=== PATIENT | female | born 1970 | race African-American/Black ===

== ENCOUNTER 2016-11-20 19:31 | Emergency (ER) | payer SELFPAY ==
[~2016-11-20] VITALS: Ht 167.6 cm; Wt 99.8 kg
[~2016-11-20 19:31] MED LIST: ALBU2.5V14 IH; AZIT500T PO; HYDR-971 PO; PRED50TA PO
[2016-11-20 19:36] VITALS: BP 130/83
[2016-11-20] MEDS ORDERED: ACETAMINOPHEN 500 MG TABLET PO ONE (20:00)
[2016-11-20] MEDS ORDERED: IBUPROFEN 800 MG TABLET. PO ONE (20:00)
[2016-11-20] MEDS ORDERED: PROAIR RESPICL90 MCG IH (20:05)
--- NOTE | 2016-11-20 20:06 | PHYS DOC ---
Past Medical History Past Medical History: Asthma, Hypertension Past Surgical History: Tubal ligation, Other Additional Past Surgical Histo: R)kidney removed(enlarged since ),bilat eyes,D&C x2 Alcohol Use: Occasionally Drug Use: None Adult General Chief Complaint Chief Complaint: MULTIPLE COMPLAINTS [facility] HPI Patient is a 46 year old female with history of asthma and hypertension who presents today with body aches, subjective fevers, and a headache that began 3 days ago. Patient's also complaining of coughing. Patient denies this being the worst headache in her life. Denies any chest pain or shortness of breath. She is also requesting a refill of albuterol inhaler. Review of Systems Review of Systems Constitutional: Subjective fevers and body aches Eyes: Denies change in visual acuity, redness, or eye pain [] HENT: Denies nasal congestion or sore throat [] Respiratory: Cough Cardiovascular: No additional information not addressed in HPI [] GI: Denies abdominal pain, nausea, vomiting, bloody stools or diarrhea [] : Denies dysuria or hematuria [] Musculoskeletal: Denies back pain or joint pain [] Integument: Denies rash or skin lesions [] Neurologic: Headache [] Endocrine: Denies polyuria or polydipsia [] Current Medications Current Medications Current Medications Medications (Trade) Dose Ordered Sig/Adrianne Start Time Stop Time Status Last Admin Dose Admin Acetaminophen (Tylenol) 1,000 mg 1X ONCE 11/20/16 20:00 11/20/16 20:01 DC 11/20/16 19:57 1,000 MG Ibuprofen (Motrin) 800 mg 1X ONCE 11/20/16 20:00 11/20/16 20:01 DC Allergies Allergies Allergies Coded Allergies Type Severity Reaction Last Updated Verified No Known Drug Allergies 01/24/14 No Physical Exam Physical Exam Constitutional: Well developed, well nourished, no acute distress, non-toxic appearance. [] HENT: Normocephalic, atraumatic, bilateral external ears normal, oropharynx moist, no oral exudates, nose normal. [] Eyes: PERRLA, EOMI, conjunctiva normal, no discharge. [] Neck: Normal range of motion, no tenderness, supple, no stridor. [] Cardiovascular:Heart rate regular rhythm, no murmur [] Lungs & Thorax: Left lower lung sounds course. Patient is actively coughing in the ED. Abdomen: Bowel sounds normal, soft, no tenderness, no masses, no pulsatile masses. [] Skin: Warm, dry, no erythema, no rash. [] Back: No tenderness, no CVA tenderness. [] Extremities: No tenderness, no cyanosis, no clubbing, ROM intact, no edema. [] Neurologic: Alert and oriented X 3, normal motor function, normal sensory function, no focal deficits noted. [] Psychologic: Affect normal, judgement normal, mood normal. [] Current Patient Data Vital Signs Vital Signs Date Time Temp Pulse Resp B/P Pulse Ox O2 Delivery O2 Flow Rate FiO2 11/20/16 19:36 99.8 97 18 97 Room Air 99.8 Lab Values Laboratory Tests Test 11/20/16 19:45 Influenza Type A Antigen Negative (NEGATIVE) Influenza Type B Antigen Positive (NEGATIVE) EKG EKG [] Radiology/Procedures Radiology/Procedures [] Course & Med Decision Making Course & Med Decision Making Pertinent Labs and Imaging studies reviewed. (See chart for details) Patient is in the ED with symptoms consistent with body aches headache fever and cough. Temperature in arrival is 99.8. She was given Tylenol and Motrin. She also requested a refill for albuterol inhaler which was given to her. Positive for influenza B. Chest x-ray interpreted by Dr. Mccoy is positive for left lower lobe pneumonia. Patient was discharged with clarithromycin for 7 days. She was instructed to push fluids maintain good hand hygiene. Tylenol/ Motrin for pain or fever. Follow-up with her doctor next week. Instructed to return to the ED at any point symptoms worsen. 21:25 received a phone call from the local pharmacist stating patient cannot afford clarithromycin neither can she afford Z-Robert. We switched her antibiotic to Cipro. Dragon Disclaimer Dragon Disclaimer This electronic medical record was generated, in whole or in part, using a voice recognition dictation system. Departure Departure Impression: Primary Impression: Medication refill Additional Impressions: Influenza B Community acquired pneumonia Fever Disposition: 01 HOME, SELF-CARE Condition: STABLE Referrals: CHANCE CASTELLANOS PA-C (PCP) Follow-up with your doctor in the next 7 days Patient Instructions: Medication Refill, Emergency Department Additional Instructions: You tested positive for influenza B. This is a virus. Your chest x-ray shows evidence of pneumonia. Please complete to the prescribed antibiotics. Please come back to the ED at any point symptoms worsen or you not able to take the prescribed medicines. Please follow-up with your own doctor next week. Take over -the-counter antipyretics like Tylenol for fever. Scripts Guaifenesin/Codeine Phosphate (Guaifenesin-Codeine Syrup)118 Ml Liquid5 Ml PO Q6HRS #100 ML Prov:KELSEY LANCASTER APRN 11/20/16 Clarithromycin 500 Mg Tablet1 Tab PO BID #14 TAB Prov:KELSEY LANCASTER APRN 11/20/16 Albuterol Sulfate (Proair Respiclick)90 Mcg Aer.pow.ba1 Puff IH PRN Q6HRS PRN SHORTNESS OF BREATH #1 INHALER Prov:KELSEY LANCASTER APRN 11/20/16 Problem Qualifiers Additional Impressions: Fever Fever type: unspecified Qualified Code: R50.9 - Fever, unspecified KELSEY LANCASTER APRN Nov 20, 2016 20:06
[2016-11-20 20:17] LABS: OBC FLU VALID
[2016-11-20] MEDS ORDERED: CLAR500T PO (20:44)
[2016-11-20] MEDS ORDERED: GUAI118L13 PO (20:44)
--- NOTE | 2016-11-21 07:57 | RAD ---
Chest, 2 views, 11/20/2016: History: Cough, fever, shortness of breath Comparison is made to a study from 06/10/2014. The heart size and pulmonary vascularity are normal. There is a linear opacity in the left lower chest, also evident on the previous study. No pulmonary consolidation is seen. There is no evidence of pleural fluid. IMPRESSION: Mild left basilar linear scarring or recurrent atelectasis.
[2016-11-21 09:11] LABS: NEGATIVE OBC STREP NEG; POSITIVE OBC STREP POS
== END 2016-11-20 20:53 | disposition home or self-care (01) ==
LOC: ER 19:31
DX: J10.08 Influenza due to other identified influenza virus with other specified pneumonia (principal); J18.9 Pneumonia, unspecified organism
CPT/HCPCS: 71020; 87070; 87804; 87880; 99285-25

== ENCOUNTER 2017-07-16 03:06 | Emergency (ER) | payer BC ==
[~2017-07-16] VITALS: Ht 157.5 cm; Wt 99.8 kg
[~2017-07-16 03:06] MED LIST changes: +CLAR500T PO; +GUAI118L13 PO; +PROAIR RESPICL90 MCG IH
--- NOTE | 2017-07-16 03:19 | PHYS DOC ---
Past Medical History Past Medical History: Asthma, Hypertension Past Surgical History: Tubal ligation, Other Additional Past Surgical Histo: R)kidney removed(enlarged since ),bilat eyes,D&C x2 Alcohol Use: Occasionally Drug Use: None Adult General Chief Complaint Chief Complaint: HYPERTENSION HPI HPI Patient is a 46 year old F who presents with headache and hypertension. Patient states she takes lisinopril and frusemide for high blood pressure and today started having symptoms of elevated blood pressure which included a headache. Patient took her blood pressure prior to going to bed which was elevated in the 160s/100 and then prior to arrival took her blood pressure at [facility] which fby632/100. Patient denies any chest pain or shortness of breath. Patient denies any nausea/vomiting/diarrhea. Patient denies any fevers. Patient is no other complaints. Review of Systems Review of Systems GEN: Denies fevers, chills, sweats HEENT: Denies blurred vision, sore throat CV: Denies chest pain RESP: Denies shortness of air, cough GI: Denies n/v/d NEURO: Headache MSK: Denies weakness, joint pain/swelling All other systems were reviewed and found to be within normal limits, except as documented in this note. Current Medications Current Medications Current Medications Medications (Trade) Dose Ordered Sig/Adrianne Start Time Stop Time Status Last Admin Dose Admin Clonidine HCl (Catapres) 0.2 mg 1X ONCE 07/16/17 03:30 07/16/17 03:33 DC 07/16/17 03:48 0.2 MG Allergies Allergies Allergies Coded Allergies Type Severity Reaction Last Updated Verified No Known Drug Allergies 01/24/14 No Physical Exam Physical Exam GEN.: Mild distress. Alert and oriented. HEENT: Head is normocephalic, atraumatic NECK: Supple. LUNGS: CTAB. HEART: RRR, S1, S2 present. Peripheral pulses intact ABDOMEN: Soft, nontender. Positive bowel sounds. EXTREMITIES: Without any cyanosis. NEUROLOGIC: Normal speech, normal tone, cranial nerves II through XII are grossly intact without any focal neurological deficits PSYCHIATRIC: Normal affect, normal mood. SKIN: No ulcerations Current Patient Data Vital Signs Vital Signs Date Time Temp Pulse Resp B/P (MAP) Pulse Ox O2 Delivery O2 Flow Rate FiO2 07/16/17 03:48 97 160/90 07/16/17 03:19 98.0 18 97 Room Air 98.0 Lab Values Laboratory Tests Test 07/16/17 03:17 White Blood Count 19.4 x10^3/uL (4.0-11.0) H Red Blood Count 5.12 x10^6/uL (3.50-5.40) Hemoglobin 14.9 g/dL (12.0-15.5) Hematocrit 43.1 % (36.0-47.0) Mean Corpuscular Volume 84 fL (79-100) Mean Corpuscular Hemoglobin 29 pg (25-35) Mean Corpuscular Hemoglobin Concent 35 g/dL (31-37) Red Cell Distribution Width 13.5 % (11.5-14.5) Platelet Count 431 x10^3/uL (140-400) H Neutrophils (%) (Auto) 56 % (31-73) Lymphocytes (%) (Auto) 33 % (24-48) Monocytes (%) (Auto) 7 % (0-9) Eosinophils (%) (Auto) 4 % (0-3) H Basophils (%) (Auto) 1 % (0-3) Neutrophils # (Auto) 10.8 x10^3uL (1.8-7.7) H Lymphocytes # (Auto) 6.3 x10^3/uL (1.0-4.8) H Monocytes # (Auto) 1.3 x10^3/uL (0.0-1.1) H Eosinophils # (Auto) 0.8 x10^3/uL (0.0-0.7) H Basophils # (Auto) 0.2 x10^3/uL (0.0-0.2) Sodium Level 138 mmol/L (136-145) Potassium Level 3.8 mmol/L (3.5-5.1) Chloride Level 102 mmol/L (98-107) Carbon Dioxide Level 29 mmol/L (21-32) Anion Gap 7 (6-14) Blood Urea Nitrogen 15 mg/dL (7-20) Creatinine 1.0 mg/dL (0.6-1.0) Estimated GFR (Cockcroft-Gault) 71.9 BUN/Creatinine Ratio 15 (6-20) Glucose Level 126 mg/dL (70-99) H Calcium Level 9.1 mg/dL (8.5-10.1) Total Bilirubin 0.3 mg/dL (0.2-1.0) Aspartate Amino Transferase (AST) 17 U/L (15-37) Alanine Aminotransferase (ALT) 22 U/L (14-59) Alkaline Phosphatase 94 U/L (46-116) Troponin I Quantitative < 0.017 ng/mL (0.000-0.055) Total Protein 8.1 g/dL (6.4-8.2) Albumin 3.5 g/dL (3.4-5.0) Albumin/Globulin Ratio 0.8 (1.0-1.7) L Laboratory Tests 07/16/17 03:17 Laboratory Tests 07/16/17 03:17 EKG EKG 0342: EKG shows normal sinus rhythm rate of 99 no STEMI[] Radiology/Procedures Radiology/Procedures CT scan of the head NAD[] Course & Med Decision Making Course & Med Decision Making Pertinent Labs and Imaging studies reviewed. (See chart for details) ED course: Patient was seen and examined emergency room cardiac workup was ordered along with a CT scan of the head patient was given 0.2mg of Catapres 0425: On reexamination patient's blood pressure is in the 120s/70s and patient' s headache has resolved and feels much better. Patient was sleeping upon entering the room. Updated patient on CT findings and lab results. As the patient she's been sick recently or any infectious process such as fevers cough cold or congestion which she'll denied. Explained to the patient she has no elevated white blood cell count which she said she takes prednisone for her asthma which most likely is contributing to her elevated white count and has been told that before. Patient states she would like to go home and feels much better. Recommended short-term follow-up with PCP for better blood pressure management. MDM: After reviewing the chart, CC/HPI/PMH, physical exam, [lab results], [ radiological results], I do not believe the patient has emergent medical condition warranting further workup and/or admission at this time. I do not believe the patient has a hypertensive bleed. I do not believe the patient has a severe bacterial infection despite having a white count of 19 and believe is elevated white count is due to her chronic prednisone use secondary to her severe asthma. Patient like to go home and does not feel she has acute infectious process. Recommended short-term follow-up with her PCP to better manage her blood pressure. Patient stable for discharge. Additional verbal discharge instructions were provided to the patient and that if symptoms get worse or any new symptoms arise that are worrisome to the patient she is to return to the emergency room immediately [] Dragon Disclaimer Dragon Disclaimer This electronic medical record was generated, in whole or in part, using a voice recognition dictation system. Departure Departure Impression: Primary Impression: Hypertension Additional Impression: Leukocytosis Disposition: HOME, SELF-CARE Condition: IMPROVED Referrals: CHANCE CASTELLANOS PA-C (PCP) Patient Instructions: Arterial Hypertension Additional Instructions: Please follow-up with your family physician within next one to 2 days for blood pressure management and return if symptoms increase Problem Qualifiers HUAN NAVARRO DO Jul 16, 2017 03:19
[2017-07-16] MEDS ORDERED: cloNIDine HCL 0.1 MG TABLET PO ONE (03:30)
[2017-07-16 03:31] LABS: BASO # 0.2 x10^3/uL (0.0-0.2); BASO % 1 % (0-3); EOS % 4 % (0-3); HEMATOCRIT 43.1 % (36.0-47.0); HEMOGLOBIN 14.9 g/dL (12.0-15.5); LYMPH # 6.3 x10^3/uL (1.0-4.8); LYMPH % 33 % (24-48); MEAN CORPUSCULAR HEMOGLOBIN 29 pg (25-35); MEAN CORPUSCULAR HGB CONC 35 g/dL (31-37); MEAN CORPUSCULAR VOLUME 84 fL (79-100); MONO % 7 % (0-9); NEUT % 56 % (31-73); PLATELET COUNT 431 x10^3/uL (140-400); RED BLOOD COUNT 5.12 x10^6/uL (3.50-5.40); RED CELL DISTRIBUTION WIDTH 13.5 % (11.5-14.5); WHITE BLOOD COUNT 19.4 x10^3/uL (4.0-11.0)
[2017-07-16 03:44] LABS: CALCIUM 9.1 mg/dL (8.5-10.1); GFR 71.9; POTASSIUM 3.8 mmol/L (3.5-5.1)
--- NOTE | 2017-07-16 03:48 | RAD ---
CT head without contrast: Reason for examination: headaches and hypertension. Axial images were obtained through the brain. No contrast was administered. Exposure: One or more of the following individualized dose reduction techniques were utilized for this examination: 1. Automated exposure control 2. Adjustment of the mA and/or kV according to patient size 3. Use of iterative reconstruction technique. Ventricular systems are symmetric and not dilated. No midline shift is seen. There is no evidence of intracranial hemorrhage, infarct, mass or edema. No abnormalities are seen at the orbits. The paranasal sinuses and mastoid air cells are clear. No acute skull abnormality is seen. IMPRESSION: No acute intracranial abnormality evident. Electronically signed by: Parisa Bae MD (07/16/2017 3:45 AM) [id number]
[2017-07-16 03:51] LABS: ALBUMIN 3.5 g/dL (3.4-5.0); ALBUMIN/GLOBULIN RATIO 0.8 (1.0-1.7); TOTAL BILIRUBIN 0.3 mg/dL (0.2-1.0); TOTAL PROTEIN 8.1 g/dL (6.4-8.2)
[2017-07-16 04:30] VITALS: BP 125/67
--- NOTE | 2017-07-16 08:59 | EKG ---
[facility] [address] [place] [address] Test Date: 2017-07-16 Test Time: 03:42:41 Pat Name: ALLYSON ANN Department: Room: Gender: F Patient Relations Representative: : 1970 Requested By: HUAN NAVARRO Order Number: [id number] Reading MD: Lan Albarran MD Measurements Intervals [place] Rate: 99 P: 41 VT: 182 QRS: 15 QRSD: 76 T: -6 QT: 340 QTc: 442 Interpretive Statements SINUS RHYTHM CONSISTENT WITH ANTEROSEPTAL INFARCT Electronically Signed On 07-18-2017 12:26:28 PROGRAM CONTROL ANALYST by Lan Albarran MD
== END 2017-07-16 04:36 | disposition home or self-care (01) ==
LOC: ER 03:06
DX: I10 Essential (primary) hypertension (principal); D72.829 Elevated white blood cell count, unspecified; J45.909 Unspecified asthma, uncomplicated; Z98.51 Tubal ligation status
CPT/HCPCS: 36415; 70450; 80053; 84484; 85025; 93005; 99285-25

== ENCOUNTER 2017-12-05 17:03 | Emergency (ER) | payer SELFPAY, BC ==
[2017-12-05] MEDS: DEXAMETHASONE SOD PHOS 20 MG/5 ML VIAL. IM (19:47)
== END 2017-12-05 20:05 | disposition home or self-care (01) ==
LOC: ER 17:03
DX: R21 Rash and other nonspecific skin eruption (principal); J45.909 Unspecified asthma, uncomplicated; I10 Essential (primary) hypertension; Z98.51 Tubal ligation status; Z90.5 Acquired absence of kidney
CPT/HCPCS: 96372; 99283; J1100

== ENCOUNTER 2018-04-02 23:36 | Emergency (ER) | payer SELFPAY ==
[2018-04-03] MEDS: DIPHTH,PERTUSS(ACELL),TET TOX 0.5 ML DISP.SYRIN. VAX IM (00:29)
== END 2018-04-03 00:30 | disposition home or self-care (01) ==
LOC: ER 04-03 00:30
DX: L03.317 Cellulitis of buttock (principal); L02.31 Cutaneous abscess of buttock; I10 Essential (primary) hypertension; J45.909 Unspecified asthma, uncomplicated
CPT/HCPCS: 90471; 90715; 99283-25